=== PATIENT | male | born 1930 | race Caucasian/White ===

== ENCOUNTER 2016-09-21 17:03 | Inpatient (IN) ==
[2016-09-21] MEDS ORDERED: NITROGLYCERIN 2% OINT 1 INCH/GM PACK TOP STA (17:26)
[2016-09-21] MEDS ORDERED: METOPROLOL TARTRATE 25 MG TABLET PO STA (17:26)
[2016-09-21] MEDS ORDERED: MORPHINE 2 MG/1 ML SYRINGE IV STA (17:26)
[2016-09-21] MEDS ORDERED: FUROSEMIDE 40 MG/4 ML VIAL IV STA (17:26)
[2016-09-21] MEDS ORDERED: ASPIRIN 325 MG TABLET PO STA (17:26)
[2016-09-21] MEDS ORDERED: methylPREDNISolone SOD SUC 125 MG/2 ML VIAL IV STA (17:26)
[2016-09-21] MEDS ORDERED: ALBUTEROL/IPRATROPIUM 3 ML NEB RESP TX STA (17:26)
[2016-09-21] MEDS ORDERED: ONDANSETRON 4 MG/2 ML VIAL IV STA (17:26)
[2016-09-21] MEDS ORDERED: ALUM/MAG/SIMETH/LIDO VISC 1:1 30 ML BOTTLE PO STA (17:26)
[2016-09-21 17:36] LABS: Basophils % 0.5 % (0.0-0.8); Eosinophils # 0.1 10*3/uL (0.0-0.87); Eosinophils % 2.2 % (0.00-10.9); Hematocrit 32.8 VOL% (42.0-52.0); Hemoglobin 11.1 GM/DL (14.0-18.0); Immature Granulocytes % 0.3 %; Immature Granulocytes Absolute 0.01 #; Lymphocytes # 0.5 10*3/uL (1.4-4.0); Lymphocytes % 12.8 % (21.2-54.2); Mean Corpuscular HGB Conc 33.8 GM/DL (32-36); Mean Corpuscular Hemoglobin 31 PG (27-34); Mean Corpuscular Volume 92.1 FL (87-102); Mean Platelet Volume 9.5 FL (9.6-12.0); Monocytes # 0.4 10*3/uL (0.11-0.8); Monocytes % 10.3 % (1.7-12.7); Neutrophils # 2.7 10*3/uL (1.4-7.4); Neutrophils % 73.9 % (38.7-73.9); Platelet Count 109 T/CUMM (130-400); Red Blood Count 3.56 MC/CUMM (3.8-5.5); White Blood Count 3.7 T/CUMM (4-12)
[2016-09-21] MEDS ORDERED: ASPIRIN 325 MG TABLET ONE (17:37)
[2016-09-21] MEDS ORDERED: ALUM/MAG/SIMETH/LIDO VISC 1:1 30 ML BOTTLE PO ONE (17:37)
[2016-09-21] MEDS ORDERED: FUROSEMIDE 40 MG/4 ML VIAL ONE (17:37)
[2016-09-21] MEDS ORDERED: METOPROLOL TARTRATE 25 MG TABLET ONE (17:37)
[2016-09-21] MEDS ORDERED: MORPHINE 2 MG/1 ML SYRINGE ONE (17:38)
[2016-09-21] MEDS ORDERED: NITROGLYCERIN 2% OINT 1 INCH/GM PACK TOP ONE (17:38)
[2016-09-21] MEDS ORDERED: methylPREDNISolone SOD SUC 125 MG/2 ML VIAL ONE (17:38)
[2016-09-21] MEDS ORDERED: ONDANSETRON 4 MG/2 ML VIAL ONE (17:38)
[2016-09-21 17:49] LABS: D-Dimer 0.8 MG/L FEU; PT Patient Result 10.9 SECS
--- NOTE | 2016-09-21 17:56 | Emergency Department Note ---
Loy Hilton Brittany, am scribing for, and in the presence of, Brandon Santillan MD 17:37. Tyrell Hilton Charles R, MD, personally performed the services described in this documentation, ascribed by Kaite Granado in my presence, and it is both accurate and complete 755 . Arrival - Arrival Chief Complaint: Chest Pain Stated Complaint: C/O CHEST PAIN WITH ONSET THREE DAYS AGO ED Nursing Triage Note: C/O CHEST PAIN WITH ONSET THREE DAYS AGO. PT ALSO STATES SOB WITH EXERTION Mode of Arrival: Stretcher Limitations: No Limitations Source: Patient, Old Records Reviewed, RN Notes Reviewed - History of Present Illness HPI Narrative: Patient is a 86 y/o white male with a history significant for COPD presenting to the ED by EMS with c/o chest pain with an onset of 3 days. Patient describes this chest pain as a tightness that is not worsened by deep breaths. He confirms associated sx's of SOB, but denies any diaphoresis, N/V, radiation of pain into the neck or arm. He reports that he is oxygen dependent at home. He notes a history of Lung CA, Prostate CA which he received radiation and chemotherapy tx's per Dr. Sosa and Dr. Blanco. He reports that he has not had any stent placement, but does report getting a stress test performed per Dr. Rodriguez a few years ago and was told everything was in good standing. Patient confirms compliance with Lasix. He denies history of CHF, IDDM/NIDDM. Patient was given NTG at home per home health nurse and en route to the ED per EMS. Patient has no other complaint/pain in the ED at this time. Onset (ago): day(s) (3) Consistency: constant Severity: moderate Severity scale (1-10): 6 Quality: aching Allergies/Adverse Reactions: Allergies Allergy/AdvReac Type Severity Reaction Status Date / Time captopril [From Capoten] Allergy Unknown/Unable Verified 08/17/16 15:52 to obtain Cefaclor [From Ceclor] Allergy Unknown/Unable Verified 08/17/16 15:52 to obtain cephalexin [From Keflex] Allergy Unknown/Unable Verified 08/17/16 15:52 to obtain clindamycin Allergy Unknown/Unable Verified 08/17/16 15:52 to obtain Erythromycin Base Allergy Unknown/Unable Verified 08/17/16 15:52 [From Bola-Tab] to obtain promethazine [From Phenergan] Allergy Unknown/Unable Verified 08/17/16 15:52 to obtain Home Medications: Home Medications Medication Instructions Recorded Confirmed Type Aspirin EC Tab 81 mg PO BEDTIME 08/17/16 08/17/16 History Celecoxib 200 mg PO DAILY 08/17/16 08/17/16 History Cetirizine Tab [ZyrTEC Tab] 10 mg PO DAILY PRN 08/17/16 08/17/16 History Citalopram [CeleXA] 20 mg PO BEDTIME 08/17/16 08/17/16 History Esomeprazole Magnesium 40 mg PO BID 08/17/16 08/17/16 History [Esomeprazole] Fluticasone 50 Mcg Nasal [place] 1 spray BOTH NARES DAILY PRN 08/17/16 08/17/16 History [Flonase Nasal [place]] Furosemide Tab [Lasix Tab] 20 mg PO DAILY PRN 08/17/16 08/17/16 History Hydrocodone/Acetaminophen [[place] 1 each PO Q6H PRN 08/17/16 08/17/16 History 10-325 Tablet] Levalbuterol Neb [Xopenex Neb] 1.25 mg RESP TX RT Q12H 08/17/16 08/17/16 History Meclizine [Antivert] 25 mg PO DAILY PRN 08/17/16 08/17/16 History Morphine Sulfate [Ms Contin] 15 mg PO Q12H 08/17/16 08/17/16 History Multivit-Min/FA/Lycopen/Lutein 1 each PO DAILY 08/17/16 08/17/16 History [Centrum Silver Tablet] Niacin [Vitamin B3] 1,000 mg PO DAILY 08/17/16 08/17/16 History Pyridoxine HCl (Vitamin B6) 100 mg PO DAILY 08/17/16 08/17/16 History [Pyridoxine HCl] Stannous Fluoride [Gel-Mehran 0.4% 1 applic DENTAL BID 08/17/16 08/17/16 History Gel] Theophylline ER Tab 300 mg PO BID W/MEALS 08/17/16 08/17/16 History Tiotropium Inhalation [Spiriva 18 mcg INH BEDTIME 08/17/16 08/17/16 History Handihaler] Review of System - Review of System 12 point system: reviewed and no additional remarkable complaints except as stated - Review of System Constitutional: Absent: chills, diaphoresis, fever Eyes: Absent: vision change Head/Ears/Nose/Throat: Absent: nasal drainage, sore throat Respiratory: Present: respiratory distress Cardiovascular: Present: chest pain Gastrointestinal: Absent: abdominal pain, nausea, vomiting, diarrhea, constipation Genitourinary male: Absent: urgency, dysuria, frequency Musculoskeletal: Absent: arm pain, back pain, leg pain, neck pain Skin: Absent: rash Neurological: Absent: headache Psychiatric: Absent: anxiety, depression Hematological/Lymphatic: Absent: easy bleeding, easy bruising Medical,Surgical,& Family Hx - Medical History Cardio: History of: CAD Endocrine: History of: Diabetes Mellitus (NIDDM) Respiratory: History of: COPD, Lung Cancer - Surgical History Cardiac Surgeries: Sugical HX of: Cardiac Catheterization (WITH STENTS) Reproductive Surgeries: Surgical HX of;: Prostate Surgery - Family History Family History: Reports;: Family Cancer, Family Heart Disease, Family Hypertension - Social History Smoking Status: Smoker, status unknown Frequency of Alcohol Use: None Type of Drug Use: None Exam Vital Signs: Vital Signs Temperature 97.8 F 09/21/16 17:03 Pulse Rate 63 09/21/16 17:45 Respiratory Rate 20 09/21/16 17:45 Blood Pressure 128/73 09/21/16 17:03 O2 Sat by Pulse Oximetry 86 L 09/21/16 17:03 - General General appearance: alert, in no apparent distress - Head Head exam: Present: atraumatic, normocephalic, normal inspection - Eye Eye exam: Present: normal appearance, PERRL, EOMI - ENT ENT exam: Present: normal exam, normal oropharynx - Neck Neck exam: Present: normal inspection, full ROM, trachea midline - Chest Chest inspection: Present: symmetric chest wall rise. Absent: normal inspection (barrel chest) - Respiratory Respiratory exam: Present: wheezes (bilateral wheezing noted ). Absent: normal lung sounds bilaterally - Cardiovascular Cardiovascular exam: Present: regular rate, normal rhythm, murmur (3/6 systolic ejection murmur, sounds like a mitral valve prolapse, but occurs intermittently) . Absent: normal heart sounds - Abdominal Exam Abdominal exam: Present: soft, normal bowel sounds. Absent: tenderness - Extremities Exam Extremities exam: Present: full ROM, pedal edema (+2 edema to bilateral lower extremities) - Back Exam Back exam: Present: normal inspection - Neurological Exam Neurological exam: Present: alert, oriented X3, CN II-XII intact. Absent: motor sensory deficit - Psychiatric Psychiatric exam: Present: normal affect, normal mood - Skin Skin exam: Present: warm, dry Course - Consultations Consultation #1: Dr. Anenl Valencia will admit patient for Dr. Echeverria Time: 18:37 Results - Labs CBC & BMP: 09/21/16 17:24 09/21/16 17:24 Lab Results: I have reviewed the patients labs Labs: Laboratory Tests 09/21/16 09/21/16 17:24 17:24 WBC 3.7 L RBC 3.56 L Hgb 11.1 L Hct 32.8 L Plt Count 109 L MPV 9.5 L Lymph % (Auto) 12.8 L Lymph # (Auto) 0.5 L INR 1.0 PT Patient/Control Mix 10.9 D-Dimer, Quantitative 0.8 Laboratory Tests 09/21/16 17:24 Sodium 139 Potassium 4.1 Chloride 103 Carbon Dioxide 31 Anion Gap 9.1 BUN 17 Creatinine 0.80 GFR Calculation 85 BUN/Creatinine Ratio 21.00 H Glucose 107 H Calculated Osmolality 278.5 Calcium 9.1 Magnesium 2.2 Total Bilirubin < 0.39 AST 20 ALT 17 Alkaline Phosphatase 97 Total Protein 6.5 Albumin 3.3 L Globulin 3.2 Albumin/Globulin Ratio 1.0 L Lipase 91.0 Laboratory Tests 09/21/16 17:24 Troponin I 0.062 H Disposition Clinical Impression: Chest pain, COPD exacerbation, Generalized weakness, O2 dependent Case discussed with: patient Disposition: Still a Patient Condition: Stable Time of Disposition: 18:38
[2016-09-21 18:12] LABS: Alanine Aminotransferase 17 U/L (16-61); Albumin 3.3 G/DL (3.4-5.0); Alkaline Phosphatase 97 U/L (45-117); Aspartate Amino Transferase 20 U/L (0-37); Bilirubin,Total < 0.39 MG/DL (0.2-1.0); Blood Urea Nitrogen 17 MG/DL (7-18); Calcium 9.1 MG/DL (8.5-10.1); Glucose 107 MG/DL (74-106); Magnesium 2.2 MG/DL (1.8-2.4); Osmolality,Calculated 278.5 MOS/KG (273-304); Potassium 4.1 MMOL/L (3.5-5.1); Sodium 139 MMOL/L (136-145); Total Protein 6.5 G/DL (6.4-8.3)
[2016-09-21] MEDS ORDERED: ENOXAPARIN 100 MG/ML SYRINGE SUBCUT STA (18:29)
--- NOTE | 2016-09-21 18:38 | XRay Report ---
XR chest 1V portable Indication: Chest pain. Chest one view: Comparison 03/14/2014. Scoliosis, osteoporosis, Mediport catheter and mild cardiomegaly are stable. Calcified atheromatous disease again shown. Hyperlucency of the mid and upper right lung is consistent with severe pulmonary emphysema, confirmed on a prior CT chest 04/16/2013. Patchy and linear areas of density involving the right lung base appears slightly worse than previous, likely scarring and/or atelectasis. Throughout the left lung, diffusely coarsened interstitial markings of the lungs have progressed moderately since prior exam. Overall, lung bones are decreased as well. Impression: 1. Decrease in lung volumes since 2014 with bullous emphysema involving the right midlung and apex, markedly coarsened interstitial markings indicating scarring of right lung base, and diffuse nonspecific interstitial coarsening throughout the left lung, presumably scarring. Patient does have a history of lung cancer, last studied at this facility 2013. None of this appears acute. 2. Stable pancreatic cardiomegaly, scoliosis and osteoporosis. PROCEDURE INTERPRETED AT [facility] DEPARTMENT OF RADIOLOGY Final Report Signed by: Padilla Arora M.D.
[2016-09-21] MEDS ORDERED: ENOXAPARIN 100 MG/ML SYRINGE SUBCUT ONE (18:47)
[2016-09-21 18:48] LABS: Apearance,Urine CLEAR (Clear); Bilirubin,Urine Negative (Negative); Blood, Urine Negative (Negative); Glucose,Urine (UA) Negative (Negative); Ketones,Urine Negative (Negative); Mucus,Urine Occasional /LPF (Occasional); Nitrite,Urine Negative (Negative); Protein,Urine 30 MG/DL; RBC,Urine 1 /HPF (0-4); Squamous Epithelial Cell,Urine Occasional /HPF (0-10); Urine Color Straw (Yellow); Urine Specific Gravity 1.009 (1.001-1.035); Urine Urobilinogen < 2.0 EU/DL (0.2-1.0); WBC,Urine <1 /HPF (0-6)
[2016-09-21] MEDS ORDERED: MORPHINE 2 MG/1 ML SYRINGE IV PRN (19:08)
[2016-09-21] MEDS ORDERED: ALBUTEROL/IPRATROPIUM 3 ML NEB RESP TX PRN (19:08)
[2016-09-21] MEDS ORDERED: ONDANSETRON 4 MG/2 ML VIAL IV PRN (19:08)
[2016-09-21] MEDS ORDERED: SODIUM CHLORIDE 0.9% 1,000 ML IV SCH (19:08)
[2016-09-21] MEDS ORDERED: ACETAMINOPHEN 325 MG TABLET PO PRN (19:08)
[2016-09-21] MEDS: methylPREDNISolone SOD SUC 40 MG/1 ML VIAL IV SCH (19:39)
[2016-09-21] MEDS: ENOXAPARIN 80 MG/0.8 ML SYRINGE SUBCUT SCH (19:39)
[2016-09-21] MEDS: METOPROLOL TARTRATE 25 MG TABLET PO SCH (22:22)
[2016-09-21] MEDS: DOCUSATE SODIUM 100 MG CAPSULE PO SCH (22:32)
[2016-09-22] MEDS: NITROGLYCERIN 2% OINT 1 INCH/GM PACK TOP SCH ×2 (02:32→06:04)
--- NOTE | 2016-09-22 04:21 | EKG Report ---
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
[2016-09-22 04:44] LABS: Basophils % 0.2 % (0.0-0.8); Hematocrit 34.9 VOL% (42.0-52.0); Hemoglobin 11.5 GM/DL (14.0-18.0); Immature Granulocytes % 0.5 %; Immature Granulocytes Absolute 0.02 #; Lymphocytes # 0.3 10*3/uL (1.4-4.0); Lymphocytes % 6.1 % (21.2-54.2); Mean Corpuscular Hemoglobin 30 PG (27-34); Mean Corpuscular Volume 91.1 FL (87-102); Mean Platelet Volume 10.3 FL (9.6-12.0); Monocytes # 0.1 10*3/uL (0.11-0.8); Monocytes % 2.4 % (1.7-12.7); Neutrophils # 3.7 10*3/uL (1.4-7.4); Neutrophils % 90.8 % (38.7-73.9); Platelet Count 119 T/CUMM (130-400); Red Blood Count 3.83 MC/CUMM (3.8-5.5); Red Cell Distribution Width 14.1 % (9.3-17.3); White Blood Count 4.1 T/CUMM (4-12)
[2016-09-22 05:12] LABS: Albumin 3.2 G/DL (3.4-5.0); Bilirubin,Total 0.9 MG/DL (0.2-1.0); Calcium 9.3 MG/DL (8.5-10.1); Magnesium 2.2 MG/DL (1.8-2.4); Osmolality,Calculated 284.4 MOS/KG (273-304); Potassium 4.6 MMOL/L (3.5-5.1); Risk Ratio 1.63; Total Protein 6.6 G/DL (6.4-8.3); VLDL CHOLESTEROL 10.6 MG/DL
[2016-09-22 05:16] LABS: Band Neutrophils 1 % (0-10); Lymphocytes 3 % (20-55); Segmented Neutrophils 95 % (50-85); Total Cells Counted 100
[2016-09-22 05:17] LABS: Hypochromasia 1+; Ovalocytes Slight; Platelet Estimate Decreased
[2016-09-22] MEDS: methylPREDNISolone SOD SUC 40 MG/1 ML VIAL IV SCH ×2 (06:33→19:18)
--- NOTE | 2016-09-22 07:59 | EKG Report ---
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
--- NOTE | 2016-09-22 08:07 | Internal Med History&Physical ---
Assessment and Plan (1) Chest pain Status: Acute Assessment and plan: 86-year-old male admitted to acute care * Chest pain. Patient has history of coronary artery disease in the past. He was followed by Dr. Rodriguez. He did had mild elevation of his troponin and BNP. Will check echocardiogram and consult cardiology * Severe emphysematous COPD. Will continue him on the nebulizer treatments. Will add Solu-Medrol. Will also add antibiotics * Hypertension. Blood pressure is stable * History of lung cancer. Will consult Dr. muñoz * Depression. Continue current treatment * Chronic pain. Continue pain medication * Discussed with patient and his . He has mentioned no life support and CPR in the past. He does not want any now. Will make him DNR Current Visit: Yes (2) Metastatic primary lung cancer Status: Acute Current Visit: Yes (3) Hypertension Status: Acute Current Visit: Yes (4) Depression Status: Acute Current Visit: Yes (5) COPD exacerbation Status: Acute Current Visit: Yes History of Present Illness Chief complaint: Chest pain History of present illness: Mr. Bae is a 86 year old male with history of severe COPD, metastatic lung cancer, hypertension, depression, GERD who was brought to the emergency room by family because of chest pain. It had initially started about 2-3 days ago. He progressively became more short of breath. Patient had chest tightness which was relieved by sublingual nitroglycerin. He is on 3 L home oxygen. He denies any nausea vomiting or diarrhea. He denies any fever or chills. He gets extremely short of breath on any kind of activity. His lung cancer was initially diagnosed about 10 years ago. He has done extremely well with chemotherapy and radiation over the years. He was initially followed by Dr. Sosa and now is followed by Dr. Muñoz. His last chemotherapy was over 6 months ago. He is comfortable this morning. Home Medications Medication Instructions Recorded Confirmed Type Aspirin EC Tab 81 mg PO BEDTIME 08/17/16 09/21/16 History Celecoxib 200 mg PO DAILY 08/17/16 09/21/16 History Cetirizine Tab [ZyrTEC Tab] 10 mg PO DAILY PRN 08/17/16 09/21/16 History Citalopram [CeleXA] 20 mg PO BEDTIME 08/17/16 09/21/16 History Esomeprazole Magnesium 40 mg PO BID 08/17/16 09/21/16 History [Esomeprazole] Fluticasone 50 Mcg Nasal [place] 1 spray BOTH NARES DAILY PRN 08/17/16 09/21/16 History [Flonase Nasal [place]] Furosemide Tab [Lasix Tab] 20 mg PO DAILY PRN 08/17/16 09/21/16 History Hydrocodone/Acetaminophen [[place] 1 each PO Q6H PRN 08/17/16 09/21/16 History 10-325 Tablet] Levalbuterol Neb [Xopenex Neb] 1.25 mg RESP TX RT Q12H 08/17/16 09/21/16 History Meclizine [Antivert] 25 mg PO DAILY PRN 08/17/16 09/21/16 History Morphine Sulfate [Ms Contin] 15 mg PO Q12H 08/17/16 09/21/16 History Multivit-Min/FA/Lycopen/Lutein 1 each PO DAILY 08/17/16 09/21/16 History [Centrum Silver Tablet] Niacin [Vitamin B3] 1,000 mg PO DAILY 08/17/16 09/21/16 History Pyridoxine HCl (Vitamin B6) 100 mg PO DAILY 08/17/16 09/21/16 History [Pyridoxine HCl] Stannous Fluoride [Gel-Mehran 0.4% 1 applic DENTAL BID 08/17/16 09/21/16 History Gel] Theophylline ER Tab 300 mg PO BID W/MEALS 08/17/16 09/21/16 History Tiotropium Inhalation [Spiriva 18 mcg INH BEDTIME 08/17/16 09/21/16 History Handihaler] Allergies Allergy/AdvReac Type Severity Reaction Status Date / Time captopril [From Capoten] Allergy Unknown/Unable Verified 08/17/16 15:52 to obtain Cefaclor [From Ceclor] Allergy Unknown/Unable Verified 08/17/16 15:52 to obtain cephalexin [From Keflex] Allergy Unknown/Unable Verified 08/17/16 15:52 to obtain clindamycin Allergy Unknown/Unable Verified 08/17/16 15:52 to obtain Erythromycin Base Allergy Unknown/Unable Verified 08/17/16 15:52 [From Bola-Tab] to obtain promethazine [From Phenergan] Allergy Unknown/Unable Verified 08/17/16 15:52 to obtain Medical,Surgical,& Family Hx - Medical History Cardio: History of: CAD (1998) Psychological: History of: Depression Endocrine: No history of: Diabetes Mellitus (NIDDM) Respiratory: History of: COPD, Lung Cancer (Diagnosed over 10 years ago stage IV with metastasis to the bone) Genitourinary: History of: Genitourinary Cancer (Prostate cancer 2003) - Surgical History Cardiac Surgeries: Sugical HX of: Cardiac Catheterization (WITH STENTS) Reproductive Surgeries: Surgical HX of;: Prostate Surgery - Family History Family History: Reports;: Family Cancer, Family Heart Disease, Family Hypertension - Social History Smoking Status: Smoker, status unknown Frequency of Alcohol Use: None Type of Drug Use: None Marital Status: Lives With:: Spouse Functional capacity: wheelchair bound 12 point system: reviewed and no additional remarkable complaints except as stated (As mentioned in HPI) Exam - Constitutional Vitals: Period Temp Pulse Resp BP Sys/Brenner Pulse Ox Last 24 Hr 96.0 F-98.1 F 60-96 16-20 128-160/65-79 86-99 Exam: Examination: GENERAL: Elderly frail looking male HEENT: PERRLA. EOMI. Mucous membranes are moist. NECK: Neck is supple. No JVD. No carotid bruit. No thyromegaly. CVS: Regular rate and rhythm. S1 and S2 are normal. RESPIRATORY: Lungs are clear. Air entry is decreased. Few rales at bases ABDOMEN: Soft and nontender. Bowel sounds are present. No hepatosplenomegaly. EXT: 1+ edema. Peripheral pulses are present. 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 Cranial nerves II through XII are grossly intact. Motor strength is 3-4/5 SKIN: Warm and dry. MSK: No obvious deformity. Results - Labs CBC & BMP: 09/22/16 03:34 09/22/16 03:34 Lab Results: I have reviewed the past 24 hour labs
[2016-09-22] MEDS ORDERED: CETIRIZINE 10 MG TABLET PO PRN (08:15)
[2016-09-22] MEDS ORDERED: FUROSEMIDE 20 MG TABLET PO PRN (08:15)
[2016-09-22] MEDS ORDERED: FLUTICASONE 50 MCG NASAL SPRAY 16 GM BOTTLE BOTH NARES PRN (08:15)
[2016-09-22] MEDS ORDERED: MECLIZINE 25 MG TABLET PO PRN (08:15)
--- NOTE | 2016-09-22 08:55 | Oncology Progress Note ---
Oncology Subjective PN Interval history: Patient known to me with lung cancer diagnosed approximately 6-8 years prior. He is currently on observation for around 12 months. He is admitted with hypoxia and shortness of breath. Mildly elevated cardiac troponin. He has trace to 1+ pedal edema left greater than right but this does not appear increased over his baseline I interviewed and examined him with his at bedside. My impression is more of a COPD type exacerbation with elevated BNP secondary to cardiac strain. He is on steroids and does report improvement since the time of admission. Exam - Constitutional Vitals: Period Temp Pulse Resp BP Sys/[place]ner Pulse Ox Last 24 Hr 96.0 F-98.1 F 60-96 16-20 128-160/65-79 86-99 Results - Labs CBC & BMP: 09/22/16 03:34 09/22/16 03:34
[2016-09-22] MEDS ORDERED: ASPIRIN EC 325 MG TABLET PO SCH (09:00)
--- NOTE | 2016-09-22 09:23 | XRay Report ---
Portable chest Date: 09/22/2016 Clinical history: Shortness of breath Comparison: 09/21/2016 Technique: Portable AP sitting chest Findings: The heart is smaller in size with reduced pleural-parenchymal findings at the lung bases. Stable right subclavian venous access catheter. More stable appearing parenchymal findings in the left upper lobe with upward retraction of the prominent left hilum. Degenerative changes are noted. Impression: The heart is smaller in size with reduced atelectasis/infiltration/edema at the lung bases with smaller pleural effusions. More stable findings at the left lung apex. Retraction of the prominent left hilum in patient with reported carcinoma of the lung. Follow-up chest x-ray may be helpful for further evaluation. PROCEDURE INTERPRETED AT [facility] DEPARTMENT OF RADIOLOGY Final Report Signed by: Dr. Ingris Gómez
[2016-09-22] MEDS: DOCUSATE SODIUM 100 MG CAPSULE PO SCH ×2 (10:20→21:32)
[2016-09-22] MEDS: MULTIVITAMIN (CENTRUM) TABLET PO SCH (10:20)
[2016-09-22] MEDS: METOPROLOL TARTRATE 25 MG TABLET PO SCH ×2 (10:21→21:31)
[2016-09-22] MEDS: NIACIN 500 MG TABLET PO SCH (10:22)
[2016-09-22] MEDS: MORPHINE ER 15 MG TABLET PO SCH ×2 (10:22→21:31)
[2016-09-22] MEDS: PYRIDOXINE 100 MG TABLET PO SCH (10:23)
[2016-09-22] MEDS: LEVOFLOXACIN 500 MG TABLET PO SCH (10:24)
[2016-09-22] MEDS: FUROSEMIDE 20 MG/2 ML VIAL IV SCH ×2 (10:32→17:54)
[2016-09-22] MEDS: ENOXAPARIN 80 MG/0.8 ML SYRINGE SUBCUT SCH (10:35)
[2016-09-22] MEDS: PANTOPRAZOLE 40 MG VIAL IV SCH (10:38)
--- NOTE | 2016-09-22 11:17 | Cardiology Consult Note ---
I, Jada Myers, RN, am scribing for, and in the presence of, Pat Pelayo DO 10 :46. Assessment and Plan - Time spent with patient Time spent with patient: Greater than 30 minutes (due to assessment, planning, documentation, medication review) (1) Chest pain Status: Acute Assessment and plan: This sounds like noncardiac is related to exertion chest tightness but seems to be more pulmonary in nature he has not had any at rest he took a nitroglycerin before this admission did not relieve it. Given the comorbidities, advanced age and frailty; I recommend conservative medical therapy unless there is something major found on his transthoracic echo. Current Visit: Yes (2) COPD exacerbation Status: Acute Current Visit: Yes (3) Generalized weakness Status: Chronic Current Visit: Yes (4) Hypertension Status: Chronic Current Visit: Yes (5) Metastatic primary lung cancer Status: Chronic Current Visit: Yes (6) O2 dependent Status: Chronic Current Visit: Yes (7) Fall Status: Acute Assessment and plan: The patient has had escalating number of "falls" recently the story is very suspicious for syncope. I discussed with the patient's and she states this is her biggest problem in taking care of him from a day-to-day basis. He is a very high risk for complications. 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 Echeverria Oncologist: Dr. Blanco Mr. Bae is a 86 year old male who was seen initially in the past, but has not seen him in many years. He denies ever having a heart cath. He reports he had several stress test many years ago and was told they were all normal. Echocardiogram done the Dr. Echeverria's office 07/29/2015 with ejection fraction greater than 55%. Medical history includes COPD, hypertension lung cancer, and prostate cancer. His last chemotherapy was more than 6 months ago. Surgical history includes bilateral cataracts and prostate surgery. Family history is positive for mother with heart disease, mother with hypertension, and parents and siblings with diabetes. He does not smoke, states he quit more than 40 years ago. He uses oxygen at home at all times and is chronically short of breath with any exertion. About a week ago he began to have more shortness of breath that was associated with chest pain. He describes it as a dull pain on the left side of his chest that does not radiate. He rates it an 8 on a scale of 1-10 and reports the pain comes and goes, he is not sure how long it lasted. He says he thinks it is triggered at times by eating. He reports he will "choke" and began to have chest pain. He reports it usually goes away with resting. He notes that this seems to come on when he is short of breath and subsides when his breathing improves. Yesterday he did take nitroglycerin 1 that did not seem to relieve his pain. He denies any nausea vomiting or diaphoresis with these symptoms. Yesterday his home health nurse was at his home and his sats were in the 70s on oxygen and he decided to come to the emergency room for further evaluation. He reports the time he Emergency room his chest pain was much better. Chest x-ray showed no acute changes. EKG on admission showed sinus rhythm with PVCs, heart rate of 95. His troponin was slightly elevated at 0.062, 0.064 and 0.058. He was given Lasix 60 mg IV 1 dose in the emergency department. He was also given GI cocktail, IV Solu-Medrol, Lopressor 25 mg p.o. 1 dose, and Nitro-Bid ointment. He is currently resting in bed in no acute distress. Oxygen is in use via nasal cannula. He does not appear tachypneic and states he is at his baseline breathing. He denies any chest pain at present. EKG this morning showed sinus rhythm heart rate of 75. Symptomatic currently shows sinus rhythm with heart rates in the 80s. BNP this morning 609. He has been started on Lasix 20 mg IV twice daily Lopressor 25 p.o. twice daily. Echocardiogram has been ordered and I will review. Is my opinion that given his comorbidities his advanced age and his poor functional status that he is best treated conservatively. This discomfort sounds like is related to his lung disease although he certainly could have demand ischemia. His is concerned about his falls and his poor functional status this certainly is not clear whether this might potentially be syncope or not. We will follow-up on his echo and continue to monitor on the telemetry while he is here given his history of what sounds like syncope. CC: Ted Echeverria MD - Home Medications and Allergies Home Medications: Home Medications Medication Instructions Recorded Confirmed Type Aspirin EC Tab 81 mg PO BEDTIME 08/17/16 09/21/16 History Celecoxib 200 mg PO DAILY 08/17/16 09/21/16 History Cetirizine Tab [ZyrTEC Tab] 10 mg PO DAILY PRN 08/17/16 09/21/16 History Citalopram [CeleXA] 20 mg PO BEDTIME 08/17/16 09/21/16 History Esomeprazole Magnesium 40 mg PO BID 08/17/16 09/21/16 History [Esomeprazole] Fluticasone 50 Mcg Nasal [place] 1 spray BOTH NARES DAILY PRN 08/17/16 09/21/16 History [Flonase Nasal [place]] Furosemide Tab [Lasix Tab] 20 mg PO DAILY PRN 08/17/16 09/21/16 History Hydrocodone/Acetaminophen [[place] 1 each PO Q6H PRN 08/17/16 09/21/16 History 10-325 Tablet] Levalbuterol Neb [Xopenex Neb] 1.25 mg RESP TX RT Q12H 08/17/16 09/21/16 History Meclizine [Antivert] 25 mg PO DAILY PRN 08/17/16 09/21/16 History Morphine Sulfate [Ms Contin] 15 mg PO Q12H 08/17/16 09/21/16 History Multivit-Min/FA/Lycopen/Lutein 1 each PO DAILY 08/17/16 09/21/16 History [Centrum Silver Tablet] Niacin [Vitamin B3] 1,000 mg PO DAILY 08/17/16 09/21/16 History Pyridoxine HCl (Vitamin B6) 100 mg PO DAILY 08/17/16 09/21/16 History [Pyridoxine HCl] Stannous Fluoride [Gel-Mehran 0.4% 1 applic DENTAL BID 08/17/16 09/21/16 History Gel] Theophylline ER Tab 300 mg PO BID W/MEALS 08/17/16 09/21/16 History Tiotropium Inhalation [Spiriva 18 mcg INH BEDTIME 08/17/16 09/21/16 History Handihaler] Allergies/Adverse Reactions: Allergies Allergy/AdvReac Type Severity Reaction Status Date / Time captopril [From Capoten] Allergy Unknown/Unable Verified 08/17/16 15:52 to obtain Cefaclor [From Ceclor] Allergy Unknown/Unable Verified 08/17/16 15:52 to obtain cephalexin [From Keflex] Allergy Unknown/Unable Verified 08/17/16 15:52 to obtain clindamycin Allergy Unknown/Unable Verified 08/17/16 15:52 to obtain Erythromycin Base Allergy Unknown/Unable Verified 08/17/16 15:52 [From Bola-Tab] to obtain promethazine [From Phenergan] Allergy Unknown/Unable Verified 08/17/16 15:52 to obtain - Constitutional Constitutional: Present: as per HPI - EENT Eyes: Present: requires corrective lense. Absent: blurry vision Ears: Present: decreased hearing. Absent: ear pain, tinnitus Nose, mouth and throat: Present: epistaxis, headache(s), neck pain. Absent: hoarseness, sore throat - Cardiovascular Cardiovascular: Present: chest pain with activity, dyspnea, dyspnea on exertion , edema, lightheadedness. Absent: radiating jaw, neck or arm pain, orthopnea, palpitations - Respiratory Respiratory: Present: cough, dyspnea, dyspnea on exertion, wheezing. Absent: hemoptysis - Gastrointestinal Gastrointestinal: Present: abdominal pain, diarrhea. Absent: constipation, hematemesis, hematochezia, melena, nausea, vomiting - Genitourinary Genitourinary: Absent: dysuria, hematuria - Musculoskeletal Musculoskeletal: Present: back pain, limited range of motion, muscle weakness - Neurological Neurological: Present: abnormal gait, dizziness, frequent falls, headache(s), other (The patient has had several unwitnessed falls and is not sure whether he has syncope or not. Because he is unsure it is highly suspicious he has not lost bowel or bladder control. His has not witnessed any these she states she has found him with a walker upside down and partially across the room.). Absent: confusion - Psychiatric Psychiatric: Present: depression. Absent: anxiety - Endocrine Endocrine: Present: fatigue - Hematologic/Lymphatic Hematologic/Lymphatic: Present: easy bleeding, easy bruising Medical,Surgical,& Family Hx - Medical History Respiratory: History of: COPD, Lung Cancer Genitourinary: History of: Prostate Problems (cancer) - Surgical History HEENT Surgeries: Surgical HX of: Eye Surgery (Bilateral cataracts) Reproductive Surgeries: Surgical HX of;: Prostate Surgery - Family History Family History: Reports;: Family Diabetes (mother, father, brother, sister), Family Heart Disease (mother), Family Hypertension (mother) - Social History Smoking Status: Former smoker (quit more than 40 years ago) Have you smoked in the last 12 months: No Frequency of Alcohol Use: None Type of Drug Use: None Marital Status: Lives With:: Spouse Functional capacity: uses cane/walker Physical Examination Vital Signs Temp Pulse Resp BP Pulse Ox 97.8 F 96 H 19 128/73 86 L 09/21/16 17:03 09/21/16 17:03 09/21/16 17:03 09/21/16 17:03 09/21/16 17:03 General: Present: No Apparent Distress, Other (Very frail and chronically ill- appearing gentleman) HEENT: Present: PERRL, Mucus Membranes Moist Neck: Present: Supple Neck, Midline Trachea, No Bruit Cardiac: Present: Reg Rate and Rhythm (Soft murmur of aortic sclerosis). Absent : Bradycardia Lungs: Present: Decreased Breath Sounds, Oxygen (john nasal canula), Other ( Mildly prolonged expiratory phase) Neuro: Absent: Resting Tremor, Essential Tremor Abdomen: Present: Soft, Active Bowel Sounds, Non-Tender. Absent: Distended Skin: Absent: Rash, Suspicious Lesions Gait: Present: Poor Gait Extremities: Present: Normal Upper Extr. Pulses, Normal Lower Extr. Pulses, Edema (trace to bilateral lower extremities). Absent: Normal Gait Other: Numerous areas of sun damaged skin Result/EKG - Labs CBC & BMP: 09/22/16 03:34 09/22/16 03:34 Lab Results: I have reviewed the past 24 hour labs Labs: Laboratory Results - last 24 hr 09/21/16 09/21/16 09/21/16 17:24 17:24 17:24 WBC RBC Hgb Hct MCV MCH MCHC RDW Plt Count MPV Neut % (Auto) Lymph % (Auto) Ness % (Auto) Eos % (Auto) Baso % (Auto) Neut # (Auto) Lymph # (Auto) Ness # (Auto) Eos # (Auto) Baso # (Auto) Total Counted Immature Gran % Nucleated RBC % Immature Gran # Segmented Neutrophils Band Neutrophils Lymphocytes Monocytes Nucleated RBCs # Platelet Estimate Hypochromasia Ovalocytes Morphology Comment INR 1.0 PT Patient/Control Mix 10.9 D-Dimer, Quantitative 0.8 Sodium 139 Potassium 4.1 Chloride 103 Carbon Dioxide 31 Anion Gap 9.1 BUN 17 Creatinine 0.80 GFR Calculation 85 BUN/Creatinine Ratio 21.00 H Glucose 107 H Calculated Osmolality 278.5 Calcium 9.1 Magnesium 2.2 Total Bilirubin < 0.39 AST 20 ALT 17 Alkaline Phosphatase 97 Troponin I B-Natriuretic Peptide 177 H Total Protein 6.5 Albumin 3.3 L Globulin 3.2 Albumin/Globulin Ratio 1.0 L Triglycerides Cholesterol LDL Cholesterol VLDL Cholesterol HDL Cholesterol Heart Disease Risk Ratio Lipase 91.0 Urine Color Urine Appearance Urine pH Ur Specific [place] Urine Protein Urine Glucose (UA) Urine Ketones Urine Blood Urine Nitrate Urine Bilirubin Urine Urobilinogen Urine Leukocytes Urine RBC Urine WBC Ur Squamous Epith Cells Urine Mucus Ur Culture Indicated? Theophylline 09/21/16 09/21/16 09/21/16 17:24 17:24 17:24 WBC 3.7 L RBC 3.56 L Hgb 11.1 L Hct 32.8 L MCV 92.1 MCH 31 MCHC 33.8 RDW 14.0 Plt Count 109 L MPV 9.5 L Neut % (Auto) 73.9 Lymph % (Auto) 12.8 L Ness % (Auto) 10.3 Eos % (Auto) 2.2 Baso % (Auto) 0.5 Neut # (Auto) 2.7 Lymph # (Auto) 0.5 L Ness # (Auto) 0.4 Eos # (Auto) 0.1 Baso # (Auto) 0.0 Total Counted Immature Gran % 0.3 Nucleated RBC % 0.0 Immature Gran # 0.01 Segmented Neutrophils Band Neutrophils Lymphocytes Monocytes Nucleated RBCs # 0.00 Platelet Estimate Hypochromasia Ovalocytes Morphology Comment INR PT Patient/Control Mix D-Dimer, Quantitative Sodium Potassium Chloride Carbon Dioxide Anion Gap BUN Creatinine GFR Calculation BUN/Creatinine Ratio Glucose Calculated Osmolality Calcium Magnesium Total Bilirubin AST ALT Alkaline Phosphatase Troponin I 0.062 H B-Natriuretic Peptide Total Protein Albumin Globulin Albumin/Globulin Ratio Triglycerides Cholesterol LDL Cholesterol VLDL Cholesterol HDL Cholesterol Heart Disease Risk Ratio Lipase Urine Color Straw Urine Appearance Clear Urine pH 7.0 Ur Specific [place] 1.009 Urine Protein 30 Urine Glucose (UA) Negative Urine Ketones Negative Urine Blood Negative Urine Nitrate Negative Urine Bilirubin Negative Urine Urobilinogen < 2.0 H Urine Leukocytes Negative Urine RBC 1 Urine WBC <1 Ur Squamous Epith Cells Occasional Urine Mucus Occasional Ur Culture Indicated? Not indicated Theophylline 09/21/16 09/21/16 09/22/16 21:22 23:10 03:34 WBC 4.1 RBC 3.83 Hgb 11.5 L Hct 34.9 L MCV 91.1 MCH 30 MCHC 33.0 RDW 14.1 Plt Count 119 L MPV 10.3 Neut % (Auto) 90.8 H Lymph % (Auto) 6.1 L Ness % (Auto) 2.4 Eos % (Auto) 0.0 Baso % (Auto) 0.2 Neut # (Auto) 3.7 Lymph # (Auto) 0.3 L Ness # (Auto) 0.1 L Eos # (Auto) 0.0 Baso # (Auto) 0.0 Total Counted 100 Immature Gran % 0.5 Nucleated RBC % 0.0 Immature Gran # 0.02 Segmented Neutrophils 95 H Band Neutrophils 1 Lymphocytes 3 L Monocytes 1 L Nucleated RBCs # 0.00 Platelet Estimate Decreased Hypochromasia 1+ Ovalocytes Slight Morphology Comment INR PT Patient/Control Mix D-Dimer, Quantitative Sodium Potassium Chloride Carbon Dioxide Anion Gap BUN Creatinine GFR Calculation BUN/Creatinine Ratio Glucose Calculated Osmolality Calcium Magnesium Total Bilirubin AST ALT Alkaline Phosphatase Troponin I 0.064 H 0.058 H B-Natriuretic Peptide Total Protein Albumin Globulin Albumin/Globulin Ratio Triglycerides Cholesterol LDL Cholesterol VLDL Cholesterol HDL Cholesterol Heart Disease Risk Ratio Lipase Urine Color Urine Appearance Urine pH Ur Specific [place] Urine Protein Urine Glucose (UA) Urine Ketones Urine Blood Urine Nitrate Urine Bilirubin Urine Urobilinogen Urine Leukocytes Urine RBC Urine WBC Ur Squamous Epith Cells Urine Mucus Ur Culture Indicated? Theophylline 09/22/16 09/22/16 09/22/16 03:34 03:34 03:34 WBC RBC Hgb Hct MCV MCH MCHC RDW Plt Count MPV Neut % (Auto) Lymph % (Auto) Ness % (Auto) Eos % (Auto) Baso % (Auto) Neut # (Auto) Lymph # (Auto) Ness # (Auto) Eos # (Auto) Baso # (Auto) Total Counted Immature Gran % Nucleated RBC % Immature Gran # Segmented Neutrophils Band Neutrophils Lymphocytes Monocytes Nucleated RBCs # Platelet Estimate Hypochromasia Ovalocytes Morphology Comment INR PT Patient/Control Mix D-Dimer, Quantitative Sodium 140 Potassium 4.6 Chloride 102 Carbon Dioxide 33 H Anion Gap 9.6 BUN 23 H Creatinine 0.90 GFR Calculation 81 BUN/Creatinine Ratio 25.00 H Glucose 136 H Calculated Osmolality 284.4 Calcium 9.3 Magnesium 2.2 Total Bilirubin 0.90 AST 20 ALT 18 Alkaline Phosphatase 97 Troponin I B-Natriuretic Peptide 609 H Total Protein 6.6 Albumin 3.2 L Globulin 3.4 Albumin/Globulin Ratio 0.9 L Triglycerides 53 Cholesterol 165 LDL Cholesterol 63.0 VLDL Cholesterol 10.6 HDL Cholesterol 101 H Heart Disease Risk Ratio 1.63 Lipase Urine Color Urine Appearance Urine pH Ur Specific [place] Urine Protein Urine Glucose (UA) Urine Ketones Urine Blood Urine Nitrate Urine Bilirubin Urine Urobilinogen Urine Leukocytes Urine RBC Urine WBC Ur Squamous Epith Cells Urine Mucus Ur Culture Indicated? Theophylline 2.2 L - Diagnostic Findings Procedure: Chest x-ray: report reviewed by me - EKG EKG results: interpreted by me EKG shows: sinus rhythm Gita Hilton Shea, DO, personally performed the services described in this documentation, ascribed by Jada Myers RN in my presence, and it is both accurate and complete .
[2016-09-22] MEDS: IPRATROPIUM 500 MCG/2.5 ML NEB RESP TX SCH ×3 (11:43→20:04)
--- NOTE | 2016-09-22 12:06 | CT Report ---
History: Headaches Date: 09/22/2016 Study: CT head without contrast Comparison exam: September 21, [address] sections were obtained through the head without IV contrast. This CT exam was performed using one or more the following dose reduction techniques: Automated exposure control, adjustment of the MA and/or KV according to patient size, or use of iterative reconstruction technique. The ventricles are midline in position without evidence of hydrocephalus. There is mild to moderate diffuse cerebral atrophy. There is no mass or parenchymal hemorrhage. There is no gross CT evidence of acute cortical stroke. There is a mild amount of patchy ill-defined decreased density in the periventricular white matter without mass effect compatible with changes of periventricular small vessel disease. There is a moderate amount of patchy ill-defined decreased density in the [place] without mass effect which could represent small vessel disease as well. There is no extra-axial hematoma. There is no acute abnormality of the calvarium. There is moderate distal carotid artery calcification. Impression: Periventricular and pontine small vessel disease. Cerebral atrophy. No definite acute process or significant overall change from the previous study PROCEDURE INTERPRETED AT [facility] DEPARTMENT OF RADIOLOGY Final Report Signed by: Dr. Idalia Gruber
[2016-09-22] MEDS: [UNRECOGNIZED DRUG - OTHER] DENTAL SCH ×2 (12:08→21:33)
--- NOTE | 2016-09-22 14:47 | Physician Query Form ---
CLICK EDIT DOCUMENT TO SELECT QUERY ANSWER --> OK --> SIGN Beatriz Weems RN Clinical Wellness Guide W) [phone] (f) [phone] [email or web address]: Make your selection(s) from the choices in EACH section by typing an "x" and enter comments in the comment section. Please use your independent medical judgment in providing your response. This request does not imply that any particular answer is desired or expected. CLINICAL INDICATORS: (Providers should not edit this section) Based on documentation of "COPD" and "He uses oxygen at home at all times and is chronically short of breath with any exertion". Based on the above, could you clarify the appropriate diagnosis, if significant , that supports the above abnormalities and additional evaluation, monitoring, and/or treatment rendered: ( x) Pt. has chronic respiratory failure ( ) Pt. does not have chronic respiratory failure ( ) Other, please specify: ( ) Clinically unable to determine COMMENTS: PLEASE ALSO DOCUMENT RESPONSE IN PROGRESS NOTES AND/OR DISCHARGE SUMMARY Use of terms such as suspected, likely, or probable (associated with a specific diagnosis that is being evaluated, monitored, or treated as if it exists) are acceptable and can be restated in the discharge summary if not ruled out. MTDD
--- NOTE | 2016-09-22 16:31 | ECHO Report ---
Brandon Bae Exam Date: 09/22/2016 10:09 Referring Physician: Technologist: Gemma Jimenez Age: 86 Ht (in): 69 Wt (lb): 145 Gender: M Exam Location: [facility] Echo Indications: Essential (primary) hypertension, Weakness, Chest pain, unspecified, COPD, Lung cancer, o2 Dependant, Depression BP: 149 / 73 HR: 67 Rhythm: Sinus Technical Quality: good IMPRESSIONS Left ventricular ejection fraction is estimated at 60 %. There is no regional wall motion abnormality appreciated. Mild concentric left ventricular hypertrophy with Grade I diastolic dysfunction. Tricuspid regurgitation velocities suggest a RVSP of 36 mmHg + RAP. Mild aortic insufficiency Mild pulmonic insufficiency Mild tricuspid insufficiency MEASUREMENTS (Male / Female) Normal Values 2D ECHO LV Diastolic Diameter PLAX 3.8 cm 4.2 - 5.9 / 3.9 - 5.3 cm LV Systolic Diameter PLAX 2.3 cm LV Fractional Shortening PLAX 40.1 % IVS Diastolic Thickness 1.4 cm 0.6 - 1.0 / 0.6 - 0.9 cm LVPW Diastolic Thickness 1.3 cm 0.6 - 1.0 / 0.6 - 0.9 cm RV Internal Dim ED PLAX 2.2 cm Aortic Root Diameter 3.2 cm LA Systolic Diameter LX 3.5 cm 3.0 - 4.0 / 2.7 - 3.8 cm DOPPLER TR Peak Velocity 258.0 cm/s TR Peak Gradient 26.6 mmHg FINDINGS Left Ventricle Mild concentric left ventricular hypertrophy with Grade I diastolic dysfunction. Left ventricular ejection fraction is estimated at 60 %. There is no regional wall motion abnormality appreciated. Right Ventricle Normal right ventricular size. Right Atrium Normal right atrial size. Left Atrium Normal left atrial size. Mitral Valve Mild mitral valve sclerosis. Aortic Valve [id number] aortic valve stenosis. [id number] aortic valve regurgitation. Tricuspid Valve Morphologically normal tricuspid valve. Mild tricuspid valve regurgitation. Tricuspid regurgitation velocities suggest a RVSP of 36 mmHg + RAP. Pulmonic Valve Mild pulmonic valve sclerosis. Mild pulmonary valve regurgitation. Pericardium No pericardial effusion. Aorta Normal size aortic root and proximal ascending aorta. Pat Pelayo (Electronically Signed) Final Date: 22 September 2016 16:05
[2016-09-22] MEDS: THEOPHYLLINE ER 300 MG TABLET PO SCH (17:54)
[2016-09-22] MEDS: LEVALBUTEROL 1.25 MG/3 ML NEB RESP TX SCH (20:04)
[2016-09-22] MEDS ORDERED: CITALOPRAM 20 MG TABLET PO SCH (21:00)
[2016-09-23 05:51] LABS: Hemoglobin 10.7 GM/DL (14.0-18.0); Immature Granulocytes % 0.4 %; Immature Granulocytes Absolute 0.02 #; Lymphocytes # 0.5 10*3/uL (1.4-4.0); Lymphocytes % 9.6 % (21.2-54.2); Mean Corpuscular HGB Conc 33.4 GM/DL (32-36); Mean Corpuscular Hemoglobin 30 PG (27-34); Mean Corpuscular Volume 90.4 FL (87-102); Mean Platelet Volume 9.9 FL (9.6-12.0); Monocytes # 0.3 10*3/uL (0.11-0.8); Monocytes % 6.2 % (1.7-12.7); Neutrophils # 4.4 10*3/uL (1.4-7.4); Neutrophils % 83.8 % (38.7-73.9); Platelet Count 106 T/CUMM (130-400); Red Blood Count 3.54 MC/CUMM (3.8-5.5); Red Cell Distribution Width 13.6 % (9.3-17.3); White Blood Count 5.3 T/CUMM (4-12)
[2016-09-23 06:12] LABS: Calcium 9.1 MG/DL (8.5-10.1); Potassium 4.3 MMOL/L (3.5-5.1)
[2016-09-23] MEDS: IPRATROPIUM 500 MCG/2.5 ML NEB RESP TX SCH (06:58)
[2016-09-23] MEDS: LEVALBUTEROL 1.25 MG/3 ML NEB RESP TX SCH (06:59)
[2016-09-23 08:11] VITALS: BP 117/55
--- NOTE | 2016-09-23 08:25 | Discharge Summary ---
Hospital Course - Hospital Course Hospital Course: Patient is 86-year-old male with history of multiple medical problems including history of metastatic lung cancer, hypertension, depression, severe COPD, GERD who was admitted through the emergency room because of chest pain. The pain had started 3-4 days prior to admission. It was gradually getting worse and he was getting more short of breath. Patient had mildly elevated troponin and BNP. He was seen in consultation by cardiology. An echocardiogram was done which showed preserved ejection fraction. Patient was started on antibiotics and IV steroids. He has improved significantly today. He was seen in consultation by oncology. Cardiology has not recommended any screening procedures. I agree with that because of patient's comorbid conditions and frailty. He wants to go home today. Will give him 1 week of antibiotics and p.o. steroids. He will continue his other home medications. He has had some problems with reflux so we will hold Celebrex for now. He will be sent home on home health care. I will see him in office in 3-4 week Diagnosis - Discharge Diagnosis (1) Chest pain Status: Acute (2) Metastatic primary lung cancer Status: Chronic (3) Hypertension Status: Chronic (4) Depression Status: Acute (5) COPD exacerbation Status: Acute Discharge Plan - Discharge Data Disposition: Home Health Service Condition at Discharge: Stable Discharge Diet: advance to your usual diet Activity: resume usual activities as tolerated - Discharge Medications New Levofloxacin Tab [Levaquin Tab] 500 mg PO Q24H #7 tablet predniSONE [Prednisone] 10 mg PO DIRECTED #10 tab.ds.pk Continue Stannous Fluoride [Gel-Mehran 0.4% Gel] 1 applic DENTAL BID Fluticasone 50 Mcg Nasal [place] [Flonase Nasal [place]] 1 spray BOTH NARES DAILY PRN PRN Reason: Allergy Symptoms Cetirizine Tab [ZyrTEC Tab] 10 mg PO DAILY PRN PRN Reason: Allergy Symptoms Tiotropium Inhalation [Spiriva Handihaler] 18 mcg INH BEDTIME Citalopram [CeleXA] 20 mg PO BEDTIME Aspirin EC Tab 81 mg PO BEDTIME Pyridoxine HCl (Vitamin B6) [Pyridoxine HCl] 100 mg PO DAILY Niacin [Vitamin B3] 1,000 mg PO DAILY Multivit-Min/FA/Lycopen/Lutein [Centrum Silver Tablet] 1 each PO DAILY Hydrocodone/Acetaminophen [[place] 10-325 Tablet] 1 each PO Q6H PRN PRN Reason: Pain Esomeprazole Magnesium [Esomeprazole] 40 mg PO BID Levalbuterol Neb [Xopenex Neb] 1.25 mg RESP TX RT Q12H Theophylline ER Tab 300 mg PO BID W/MEALS Meclizine [Antivert] 25 mg PO DAILY PRN PRN Reason: Dizziness Furosemide Tab [Lasix Tab] 20 mg PO DAILY PRN PRN Reason: DIURETIC Morphine Sulfate [Ms Contin] 15 mg PO Q12H Discontinued Celecoxib 200 mg PO DAILY - Follow Up or Referral - Forms/Instructions Additional Discharge Instructions: Appointment in office in 3-4 weeks with CBC, BMP and a chest x-ray. Please call in prescriptions for Levaquin 500 mg daily for 7 days and prednisone 10 mg twice daily for 3 days and then daily for 4 days Exam - Constitutional Vitals: Period Temp Pulse Resp BP Sys/Brenner Pulse Ox Last 24 Hr 96.4 F-98.4 F 51-76 16-20 94-144/51-69 84-99 Exam: Examination: GENERAL: Elderly frail looking male HEENT: PERRLA. EOMI. CVS: Regular rate and rhythm. S1 and S2 are normal. RESPIRATORY: Better air entry today ABDOMEN: Soft and nontender. EXT: 1+ edema. Peripheral pulses are present. DRAFTER CHIEF DESIGN: Nonfocal SKIN: Warm and dry. MSK: No obvious deformity. Discharge Results Labs on day of discharge: Labs from last 24 hours 09/23/16 09/23/16 05:39 05:39 WBC 5.3 RBC 3.54 L Hgb 10.7 L Hct 32.0 L MCV 90.4 MCH 30 MCHC 33.4 RDW 13.6 Plt Count 106 L MPV 9.9 Neut % (Auto) 83.8 H Lymph % (Auto) 9.6 L [place] % (Auto) 6.2 Eos % (Auto) 0.0 Baso % (Auto) 0.0 Neut # (Auto) 4.4 Lymph # (Auto) 0.5 L [place] # (Auto) 0.3 Eos # (Auto) 0.0 Baso # (Auto) 0.0 Immature Gran % 0.4 Nucleated RBC % 0.0 Immature Gran # 0.02 Nucleated RBCs # 0.00 Sodium 136 Potassium 4.3 Chloride 97 L Carbon Dioxide 32 Anion Gap 11.3 BUN 32 H Creatinine 0.90 GFR Calculation 81 BUN/Creatinine Ratio 35.00 H Glucose 110 H Calculated Osmolality 279.0 Calcium 9.1 DS: Provider Date of admission: 09/21/16 18:39 Primary care physician: . No PCP Attending physician on admission: Ted Echeverria MD Consults: 09/21/16 19:08 Consult to Case Mgmt/Social Srvs [CONS] Routine Reason for Case Mgmt/Social Srvs: Discharge Planning Consult to Physician [CONS] Routine Comment: Chest pain Consulting Provider: Cardiology - [facility] When should Consulting Provider be notified: In am Consult to Specialist Group: Cardiology Person Notified: SARAH Date Notified: 09/22/16 Time Notified: 08:15 09/22/16 08:18 Consult to Physician [CONS] Routine Comment: Patient known to you Consulting Provider: Padilla Blanco Consult to Specialist Group: Oncology Person Notified: VIRAJ Date Notified: 09/22/16 Time Notified: 10:00 Discharging clinician: Ted Echeverria MD
[2016-09-23] MEDS ORDERED: ASPIRIN EC 81 MG TABLET PO SCH (09:00)
[2016-09-23] MEDS: THEOPHYLLINE ER 300 MG TABLET PO SCH (09:21)
[2016-09-23] MEDS: MORPHINE ER 15 MG TABLET PO SCH (09:21)
[2016-09-23] MEDS: PANTOPRAZOLE 40 MG VIAL IV SCH (09:21)
[2016-09-23] MEDS: MULTIVITAMIN (CENTRUM) TABLET PO SCH (09:21)
[2016-09-23] MEDS: PYRIDOXINE 100 MG TABLET PO SCH (09:22)
[2016-09-23] MEDS: METOPROLOL TARTRATE 25 MG TABLET PO SCH (09:23)
[2016-09-23] MEDS: NIACIN 500 MG TABLET PO SCH (09:23)
[2016-09-23] MEDS: LEVOFLOXACIN 500 MG TABLET PO SCH (09:23)
[2016-09-23] MEDS: DOCUSATE SODIUM 100 MG CAPSULE PO SCH (09:23)
[2016-09-23] MEDS: FUROSEMIDE 20 MG/2 ML VIAL IV SCH (09:29)
[2016-09-23] MEDS: methylPREDNISolone SOD SUC 40 MG/1 ML VIAL IV SCH (09:33)
[2016-09-23] MEDS: [UNRECOGNIZED DRUG - OTHER] DENTAL SCH (10:35)
[2016-09-23] MEDS ORDERED: ENOXAPARIN 40 MG/0.4 ML SYRINGE SUBCUT SCH (11:30)
== END 2016-09-23 10:49 | disposition home health service (06) | DRG 191 ==
LOC: EDBD → EDUNIT# → N.ED 17:03 → N.EDINP 18:39 → N.TELEN 18:51
PROVIDERS: ADMIT Internal Medicine; ATTEND Internal Medicine